=== PATIENT | female | born 1990 | race Caucasian/White ===

== ENCOUNTER 2017-12-27 11:13 | Emergency (ER) | payer OTHER ==
[2017-12-27] MEDS ORDERED: TORAdol 30 mg Injection IV ONE (11:23)
--- NOTE | 2017-12-27 11:29 | ERPHSYRPT ---
- History of Present Illness Time Seen by Provider: 12/27/17 11:18 Source: patient Physician History: CC: left inguinal pain Hx: 27 y/[address] patient of Dr Mor[facility] at [facility] on [facility]. She has a few day hx of left inguinal pain and swelling. Pain is more severe. Nausea without vomiting. No fever. No vaginal bleeding or discharge. Normal urination. Allergies/Adverse Reactions: No Known Drug Allergies Allergy (Verified 12/27/17 11:32) Home Medications: Buprenorphine HCl/Naloxone HCl [Buprenorphin-Naloxon 8-2 mg Sl] 1 tab PO UD [History] Hx Tetanus, Diphtheria Vaccination/Date Given: No (UNSURE) Hx Influenza Vaccination/Date Given: No Hx Pneumococcal Vaccination/Date Given: No - Review of Systems Constitutional: No Fever, No Chills, No Malaise Abdominal/Gastrointestinal: No Abdominal Pain Genitourinary Symptoms: No Dysuria, No , No Vaginal Bleeding, No Vaginal Discharge Skin: No Rash Neurological: No Focal Weakness, No Headache, No Parasthesia Hematologic/Lymphatic: Adenopathy (left groin?) All Other Systems: Reviewed and Negative - Past Medical History Pertinent Past Medical History: Yes Neurological History: No Pertinent History ENT History: No Pertinent History Cardiac History: No Pertinent History Respiratory History: No Pertinent History Endocrine Medical History: Hypothyroidism Musculoskeletal History: No Pertinent History GI Medical History: GERD, GI Bleed, Hepatitis, Pancreatitis History: No Pertinent History Psycho-Social History: Anxiety, Depression, Other Female Reproductive Disorders: Abnormal Uterine Bleeding, Endometriosis Other Medical History: HEP C ,PTSD, SCHIZO - Past Surgical History Past Surgical History: Yes Neuro Surgical History: No Pertinent History Cardiac: No Pertinent History Respiratory: No Pertinent History Gastrointestinal: Cholecystectomy Genitourinary: No Pertinent History Musculoskeletal: No Pertinent History, Orthopedic Surgery Female Surgical History: Other Other Surgical History: D&C, Liver bx, broken hip, bone graft with radiation - Social History Smoking Status: Current every day smoker How long have you smoked: 10yr Exposure to second hand smoke: Yes Drug Use: none Patient Lives Alone: No - Female History Hx Now: (HCG pending) - Nursing Vital Signs Nursing Vital Signs: Initial Vital Signs Temperature 98.3 F 12/27/17 11:26 Pulse Rate 104 H 12/27/17 11:26 Respiratory Rate 18 12/27/17 11:26 Blood Pressure 115/66 12/27/17 11:26 O2 Sat by Pulse Oximetry 98 12/27/17 11:26 Pain Scale Pain Intensity 6 - Physical Exam General Appearance: alert Eye Exam: PERRL/EOMI Ears, Nose, Throat Exam: moist mucous membranes Neck Exam: normal inspection, non-tender, supple Respiratory Exam: normal breath sounds Cardiovascular Exam: regular rate/rhythm Gastrointestinal/Abdomen Exam: soft, No tenderness, No distention Extremity Exam: normal inspection, normal range of motion Neurologic Exam: alert, oriented x 3, cooperative, sensation nml, No motor deficits Skin Exam: warm, dry, No rash Comments: 12/27/17 11:28 left inguinal area has swelling and tenderness. No redness. Unable to tell if LAD or inguinal hernia. Will get CT to rule out hernia. - CT Exams pelvis CT Interpretation: Tele-radiologist Report (moderate left inguinal adenopathy with largest measuring 3.5cm. Moderate inflammation in subcut fat.) Ordered Tests: Active Orders 24 hr Category Date Time Status IV Insertion STAT Care 12/27/17 11:42 Active PELVIS WITH CONTRAST [CT] Stat Exams 12/27/17 11:25 Taken CBC W DIFF Stat Lab 12/27/17 11:35 Completed CMP Stat Lab 12/27/17 11:35 Completed HCG QUALITATIVE,SERUM Stat Lab 12/27/17 11:35 Completed Manual Differential NC Stat Lab 12/27/17 11:35 Completed Medication Summary Discontinued Medications Generic Name Dose Route Start Last Admin Trade Name Freq PRN Reason Stop Dose Admin Ketorolac Tromethamine 15 mg 12/27/17 11:23 12/27/17 11:46 Toradol 30 Mg Injection IV 12/27/17 11:24 15 mg STAT ONE Administration Ketorolac Tromethamine Confirm 12/27/17 11:45 Toradol 30 Mg Injection Administered 12/27/17 11:46 Dose 30 mg .ROUTE .[facility] ONE Lab/Rad Data: Laboratory Result Diagrams 12/27/17 11:35 12/27/17 11:35 Laboratory Results 12/27/17 12/27/17 12/27/17 Range/Units 11:35 11:35 11:35 WBC 12.7 H (4.0-10.5) K/mm3 RBC 4.39 (4.1-5.4) M/mm3 Hgb 13.2 (12.0-16.0) gm/dl Hct 39.6 (35-47) % MCV 90.2 (78-100) fl MCH 30.1 (26-32) pg MCHC 33.3 (32-36) g/dl RDW 12.9 (11.5-14.0) % Plt Count 291 (150-450) K/mm3 MPV 10.1 H (6-9.5) fl Sodium 141 (137-145) mmol/L Potassium 3.9 (3.5-5.1) mmol/L Chloride 106 (98-107) mmol/L Carbon Dioxide 23 (22-30) mmol/L Anion Gap 15.9 H (5-15) MEQ/L BUN 9 (7-17) mg/dL Creatinine 0.60 (0.52-1.04) mg/dL Estimated GFR > 60 ML/MIN Glucose 96 (74-106) mg/dL Calcium 9.4 (8.4-10.2) mg/dL Total Bilirubin 0.40 (0.2-1.3) mg/dL AST 145 H (14-36) U/L ALT 272 H (0-35) U/L Alkaline Phosphatase 87 (38-126) U/L Serum Total Protein 8.2 (6.3-8.2) g/dL Albumin 4.3 (3.5-5.0) g/dL Serum , Qual NEGATIVE (Negative) - Progress Progress Note: 12/27/17 13:14 Will Rx rocephin and doxy and advise follow up. Counseled pt/family regarding: lab results, diagnosis, need for follow-up, rad results - Departure Time of Disposition: 13:14 Departure Disposition: Home Clinical Impression: left inguinal lymphadenitis Condition: Stable Critical Care Time: No Referrals: DOCTOR,NO FAMILY [NON-STAFF PHY W/O PRIVILEGES] - Instructions: Cellulitis (Skin Infection), Adult (DC) Additional Instructions: Warm compresses off and on. Rx doxycycline. Follow up with family doctor next week. Prescriptions: Doxycycline Hyclate 100 mg [Vibramycin 100 MG] 100 mg PO BID #20 tab
[2017-12-27] MEDS ORDERED: TORAdol 30 mg Injection ONE (11:45)
[2017-12-27 12:09] LABS: Hematocrit 39.6 % (35-47); Hemoglobin 13.2 gm/dl (12.0-16.0); Mean Cell Volume 90.2 fl (78-100); Mean Corpuscular Hemoglobin 30.1 pg (26-32); Mean Corpuscular Hgb Concent. 33.3 g/dl (32-36); Mean Platelet Volume 10.1 fl (6-9.5); Platelet Count 291 K/mm3 (150-450); Red Blood Count 4.39 M/mm3 (4.1-5.4); Red Cell Distribution Width 12.9 % (11.5-14.0); White Blood Count 12.7 K/mm3 (4.0-10.5)
[2017-12-27 12:20] LABS: ALBUMIN 4.3 g/dL (3.5-5.0); ALKALINE PHOSPHATASE 87 U/L (38-126); ANION GAP 15.9 MEQ/L (5-15); BLOOD UREA NITROGEN 9 mg/dL (7-17); CHLORIDE 106 mmol/L (98-107); Calcium 9.4 mg/dL (8.4-10.2); Carbon Dioxide 23 mmol/L (22-30); Glucose 96 mg/dL (74-106); Potassium 3.9 mmol/L (3.5-5.1); SGOT/AST 145 U/L (14-36); SGPT/ALT 272 U/L (0-35); SODIUM 141 mmol/L (137-145); Total Protein 8.2 g/dL (6.3-8.2)
[2017-12-27] MEDS ORDERED: ROCEPHIN 1 Gm-D5w 50 ml Bag** 1 G/50 ML IVPB IV STA (13:17)
[2017-12-27] MEDS ORDERED: ROCEPHIN 1 Gm-D5w 50 ml Bag** 1 G/50 ML IVPB IV ONE (13:19)
[2017-12-27 13:30] VITALS: BP 109/56; PULSE 76; O2SAT 97
[2017-12-27 14:13] LABS: Eosinophil 6 % (0.00-3.0); Lymphocytes 34 % (24-44); Monocyte 10 % (0.0-12.0); Neutrophils 50 % (36.0-66.0); Platelet Estimate NORMAL (NORMAL); Total Cells Counted 100
--- NOTE | 2017-12-27 20:51 | XRAY ---
Indication: Left lower quadrant pain. Multiple contiguous axial images pain through the pelvis only using 80 cc Isovue 370 contrast only. Cutaneous marker was placed over the region of pain. Comparison: August 01, 2012. The marker overlies the left groin region where there our now several prominent lymph nodes, largest measuring 2.7 x 3.4 cm with stranding suggesting infection. Additional 1.5 x 3.0 cm adenopathy in the left pelvis. Incidental scattered colonic fecal debris. No pelvic free fluid/air. Remaining visualized uterus, bladder, and vessels appear unremarkable. New finding for old right hip fracture with intact orthopedic hardware. Impression: 1. Left inguinal adenopathy and left pelvic adenopathy with stranding probably infectious and less likely malignancy. Correlate clinically. 2. Incidental fecal stasis. Comment: Preliminary interpretation was made by [facility]. No discrepancy. CTDI 23.68
== END 2017-12-27 13:37 | disposition home or self-care (01) ==
LOC: ED 11:13
DX: I88.9 Nonspecific lymphadenitis, unspecified (principal); R11.0 Nausea
CPT/HCPCS: 36000; 36415; 72193; 80053; 84703; 85025; 96365; 96374; 99284; J0696; J1885

== ENCOUNTER 2019-04-09 01:34 | Emergency (ER) | payer OTHER ==
--- NOTE | 2019-04-09 01:53 | ERPHSYRPT ---
- History of Present Illness Time Seen by Provider: 04/09/19 01:52 Source: patient Exam Limitations: clinical condition Patient Subjective Stated Complaint: pt is alert and oriented to person and time. pt is not oriented to place but knows she is in the hospital. pt comes in after standing outside of [facility] and calling 911 on herself. pt states that she has "been born 50 times and has 50 mothers". pt denies drug use for the "past 500 years or so". pt also denies alcohol. pt states that she is not having pain anywhere. pt denies auditory and visual hallucinations but pt is speaking to someone who is not there and answers questions that I am not asking. pt has flat affect and is not making eye contact. pt denies any suicidal or homicidal ideation. pt asks "have you looked inside of me?; you should probably look inside of me before you do what you're trying to do.". Triage Nursing Assessment: see above Physician History: 28 y/o white female brought in by ambulance. concern she is a danger to self because of sig confusion as well as auditory and visual hallucinations. pt has a hx of schizophrenia, anxiety and psychosis. difficult to obtain accurate hx from pt. pt not homicidal. however, states it is possible for her to be suicidal. pt claims she is a grandmother and her daughter is 12 y/o. she states she lives in a motel and next door there is a rotting corpse present according to pts daughter who told her that. Timing/Duration: today Severity of Symptoms-Max: moderate Severity of Symptoms-Current: moderate Context related to: daughter, living circumstances Associated Symptoms: confused, hallucinating Previous symptoms: no prior history Allergies/Adverse Reactions: No Known Drug Allergies Allergy (Verified 12/27/17 11:32) Home Medications: Buprenorphine HCl/Naloxone HCl [Buprenorphin-Naloxon 8-2 mg Sl] 1 tab PO UD [History] Hx Tetanus, Diphtheria Vaccination/Date Given: No (UNSURE) Hx Influenza Vaccination/Date Given: No Hx Pneumococcal Vaccination/Date Given: No Immunizations Up to Date: Yes - Past Medical History Pertinent Past Medical History: Yes Neurological History: No Pertinent History ENT History: No Pertinent History Cardiac History: No Pertinent History Respiratory History: No Pertinent History Endocrine Medical History: Hypothyroidism Musculoskeletal History: No Pertinent History GI Medical History: GERD, GI Bleed, Hepatitis, Pancreatitis History: No Pertinent History Psycho-Social History: Anxiety, Depression, Other Female Reproductive Disorders: Abnormal Uterine Bleeding, Endometriosis Other Medical History: HEP C ,PTSD, SCHIZO, psychosis - Past Surgical History Past Surgical History: Yes Neuro Surgical History: No Pertinent History Cardiac: No Pertinent History Respiratory: No Pertinent History Gastrointestinal: Cholecystectomy Genitourinary: No Pertinent History Musculoskeletal: No Pertinent History, Orthopedic Surgery Female Surgical History: Other Other Surgical History: D&C, Liver bx, broken hip, bone graft with radiation - Social History Smoking Status: Current every day smoker How long have you smoked: 10yr Exposure to second hand smoke: Yes Drug Use: none Patient Lives Alone: No - Female History Hx Now: No - Review of Systems Constitutional: Lethargy (rousable) Eyes: No Symptoms Ears, Nose, & Throat: No Symptoms Respiratory: No Symptoms Cardiac: No Symptoms Abdominal/Gastrointestinal: No Symptoms Genitourinary Symptoms: No Symptoms Musculoskeletal: No Symptoms Skin: No Symptoms Neurological: No Symptoms Psychological: Anxiety, Suicidal Ideations, Hallucinations, Other (confused to the point of unable to make rational decisions) Endocrine: No Symptoms Hematologic/Lymphatic: No Symptoms Immunological/Allergic: No Symptoms All Other Systems: Reviewed and Negative - Nursing Vital Signs Nursing Vital Signs: Initial Vital Signs Pulse Rate 90 04/09/19 01:38 Respiratory Rate 18 04/09/19 01:38 Blood Pressure 120/82 04/09/19 01:38 O2 Sat by Pulse Oximetry 97 04/09/19 01:38 Pain Scale Pain Intensity 0 - Physical Exam General Appearance: no apparent distress, lethargy (rousable), obese Eyes, Ears, Nose, Throat Exam: normal ENT inspection, moist mucous membranes Neck Exam: normal inspection, non-tender, supple, full range of motion Respiratory Exam: normal breath sounds, lungs clear, airway intact, No chest tenderness, No respiratory distress Cardiovascular Exam: regular rate/rhythm, normal heart sounds, normal peripheral pulses Gastrointestinal/Abdominal Exam: soft, normal bowel sounds, No tenderness Extremities Exam: normal inspection, normal range of motion, No evidence of injury Neurological Exam: billet checker II-XII nml as tested, disoriented x 3 Appearance: impaired insight, impaired recent memory, impaired remote memory Behavior/Eye Contact/Speech: cooperative, good eye contact, intoxicated appearance Thoughts/Hallucinations: auditory hallucinations, delusions, visual hallucinations Skin Exam: normal color, warm SpO2 Interpretation: normal SpO2: 97 O2 Delivery: Room Air - Course Nursing assessment & vital signs reviewed: Yes Ordered Tests: Active Orders 24 hr Category Date Time Status EKG-ER Only STAT Care 04/09/19 01:53 Active Psychiatric Consult STAT Cons 04/09/19 01:54 Active ACETAMINOPHEN Stat Lab 04/09/19 03:05 Completed CBC W DIFF Stat Lab 04/09/19 03:05 Completed CMP Stat Lab 04/09/19 03:05 Completed CULTURE,URINE Stat Lab 04/09/19 01:54 Received ETHYL ALCOHOL Stat Lab 04/09/19 03:05 Completed HCG,QUALITATIVE URINE Stat Lab 04/09/19 01:54 Completed SALICYLATE Stat Lab 04/09/19 03:05 Completed UA W/RFX UR CULTURE Stat Lab 04/09/19 01:54 Completed Urine Triage Profile Stat Lab 04/09/19 01:55 Completed Medication Summary Generic Name Dose Route Start Last Admin Trade Name Freq PRN Reason Stop Dose Admin Ciprofloxacin 500 mg 04/09/19 05:01 Cipro 500 Mg PO 04/09/19 05:02 STAT ONE Lab/Rad Data: Laboratory Result Diagrams 04/09/19 03:05 04/09/19 03:05 Laboratory Results 04/09/19 04/09/19 04/09/19 Range/Units 03:05 03:05 01:55 WBC 16.8 H (4.0-10.5) K/mm3 RBC 4.35 (4.1-5.4) M/mm3 Hgb 13.2 (12.0-16.0) gm/dl Hct 39.9 (35-47) % MCV 91.7 (78-100) fl MCH 30.3 (26-32) pg MCHC 33.1 (32-36) g/dl RDW 12.7 (11.5-14.0) % Plt Count 315 (150-450) K/mm3 MPV 10.0 H (6-9.5) fl Gran % 55.4 (36.0-66.0) % Eos # (Auto) 0.11 (0-0.5) Absolute Lymphs (auto) 5.85 H (1.0-4.6) Absolute Monos (auto) 1.49 H (0.0-1.3) Lymphocytes % 34.8 (24.0-44.0) % Monocytes % 8.9 (0.0-12.0) % Eosinophils % 0.7 (0.00-5.0) % Basophils % 0.2 (0.0-0.4) % Absolute Granulocytes 9.32 H (1.4-6.9) Basophils # 0.04 (0-0.4) Sodium 141 (137-145) mmol/L Potassium 3.4 L (3.5-5.1) mmol/L Chloride 107 (98-107) mmol/L Carbon Dioxide 23 (22-30) mmol/L Anion Gap 14.4 (5-15) MEQ/L BUN 17 (7-17) mg/dL Creatinine 0.71 (0.52-1.04) mg/dL Estimated GFR > 60.0 ML/MIN Glucose 88 (74-106) mg/dL Calcium 10.0 (8.4-10.2) mg/dL Total Bilirubin 0.60 (0.2-1.3) mg/dL AST 36 (14-36) U/L ALT 49 H (0-35) U/L Alkaline Phosphatase 90 (38-126) U/L Serum Total Protein 8.6 H (6.3-8.2) g/dL Albumin 4.7 (3.5-5.0) g/dL Urine Color (YELLOW) Urine Appearance (CLEAR) Urine pH (5-6) Ur Specific [place] (1.005-1.025) Urine Protein (Negative) Urine Ketones (NEGATIVE) Urine Blood (0-5) Samson/ul Urine Nitrite (NEGATIVE) Urine Bilirubin (NEGATIVE) Urine Urobilinogen (0-1) mg/dL Ur Leukocyte Esterase (NEGATIVE) Urine WBC (Auto) (0-5) /HPF Urine RBC (Auto) (0-2) /HPF U Epithel Cells (Auto) (FEW) /HPF Urine Bacteria (Auto) (NEGATIVE) /HPF Urine Mucus (Auto) (NEGATIVE) /HPF Urine Culture Reflexed (NO) Urine Glucose (NEGATIVE) mg/dL Urine HCG, Qual (Negative) Salicylates < 1.0 L (2-20) mg/dL Urine Opiates Level NEGATIVE (NEGATIVE) Ur Methadone NEGATIVE (NEGATIVE) Acetaminophen < 10 L (10-30) ug/ml Urine Barbiturates NEGATIVE (NEGATIVE) Ur Phencyclidine (PCP) NEGATIVE (NEGATIVE) Urine Amphetamine NEGATIVE (NEGATIVE) U Benzodiazepine Level POSITIVE (NEGATIVE) Urine Cocaine NEGATIVE (NEGATIVE) Urine Marijuana (THC) NEGATIVE (NEGATIVE) Ethyl Alcohol < 10 (0-10) mg/dL Slides for Path Review YES 04/09/19 04/09/19 Range/Units 01:54 01:54 WBC (4.0-10.5) K/mm3 RBC (4.1-5.4) M/mm3 Hgb (12.0-16.0) gm/dl Hct (35-47) % MCV (78-100) fl MCH (26-32) pg MCHC (32-36) g/dl RDW (11.5-14.0) % Plt Count (150-450) K/mm3 MPV (6-9.5) fl Gran % (36.0-66.0) % Eos # (Auto) (0-0.5) Absolute Lymphs (auto) (1.0-4.6) Absolute Monos (auto) (0.0-1.3) Lymphocytes % (24.0-44.0) % Monocytes % (0.0-12.0) % Eosinophils % (0.00-5.0) % Basophils % (0.0-0.4) % Absolute Granulocytes (1.4-6.9) Basophils # (0-0.4) Sodium (137-145) mmol/L Potassium (3.5-5.1) mmol/L Chloride (98-107) mmol/L Carbon Dioxide (22-30) mmol/L Anion Gap (5-15) MEQ/L BUN (7-17) mg/dL Creatinine (0.52-1.04) mg/dL Estimated GFR ML/MIN Glucose (74-106) mg/dL Calcium (8.4-10.2) mg/dL Total Bilirubin (0.2-1.3) mg/dL AST (14-36) U/L ALT (0-35) U/L Alkaline Phosphatase (38-126) U/L Serum Total Protein (6.3-8.2) g/dL Albumin (3.5-5.0) g/dL Urine Color YELLOW (YELLOW) Urine Appearance TURBID (CLEAR) Urine pH 5.0 (5-6) Ur Specific [place] 1.029 (1.005-1.025) Urine Protein 30 (Negative) Urine Ketones NEGATIVE (NEGATIVE) Urine Blood NEGATIVE (0-5) Samson/ul Urine Nitrite NEGATIVE (NEGATIVE) Urine Bilirubin NEGATIVE (NEGATIVE) Urine Urobilinogen 2 (0-1) mg/dL Ur Leukocyte Esterase SMALL (NEGATIVE) Urine WBC (Auto) 26-50 (0-5) /HPF Urine RBC (Auto) 0-2 (0-2) /HPF U Epithel Cells (Auto) RARE (FEW) /HPF Urine Bacteria (Auto) MANY (NEGATIVE) /HPF Urine Mucus (Auto) MODERATE (NEGATIVE) /HPF Urine Culture Reflexed YES (NO) Urine Glucose NEGATIVE (NEGATIVE) mg/dL Urine HCG, Qual NEGATIVE (Negative) Salicylates (2-20) mg/dL Urine Opiates Level (NEGATIVE) Ur Methadone (NEGATIVE) Acetaminophen (10-30) ug/ml Urine Barbiturates (NEGATIVE) Ur Phencyclidine (PCP) (NEGATIVE) Urine Amphetamine (NEGATIVE) U Benzodiazepine Level (NEGATIVE) Urine Cocaine (NEGATIVE) Urine Marijuana (THC) (NEGATIVE) Ethyl Alcohol (0-10) mg/dL Slides for Path Review - Progress Progress Note: 04/09/19 05:09 pt unable to make rational decisions. will fill out emergency residential forms. [facility] has accepted pt for inpt tx 04/09/19 05:13 Counseled pt/family regarding: lab results, diagnosis - Departure Departure Disposition: Transfer Clinical Impression: Confusion, Visual hallucinations, Auditory hallucinations Condition: Stable Critical Care Time: No Referrals: JUAN JOSÉ CHONG [Primary Care Provider] -
[2019-04-09 03:06] LABS: BASOPHIL % 0.2 % (0.0-0.4); Basophil (Absolute #) 0.04 (0-0.4); Eosinophil % 0.7 % (0.00-5.0); Eosinophil (Absolute #) 0.11 (0-0.5); Granulocyte Absolute (ANC) 9.32 (1.4-6.9); Granulocytes % 55.4 % (36.0-66.0); Hematocrit 39.9 % (35-47); Hemoglobin 13.2 gm/dl (12.0-16.0); Lymphocyte (Absolute #) 5.85 (1.0-4.6); Lymphocytes % 34.8 % (24.0-44.0); Mean Cell Volume 91.7 fl (78-100); Mean Corpuscular Hemoglobin 30.3 pg (26-32); Mean Corpuscular Hgb Concent. 33.1 g/dl (32-36); Monocyte (Absolute #) 1.49 (0.0-1.3); Monocytes % 8.9 % (0.0-12.0); Platelet Count 315 K/mm3 (150-450); Red Blood Count 4.35 M/mm3 (4.1-5.4); Red Cell Distribution Width 12.7 % (11.5-14.0); White Blood Count 16.8 K/mm3 (4.0-10.5)
[2019-04-09 03:21] LABS: ALBUMIN 4.7 g/dL (3.5-5.0); ALKALINE PHOSPHATASE 90 U/L (38-126); ANION GAP 14.4 MEQ/L (5-15); BLOOD UREA NITROGEN 17 mg/dL (7-17); CHLORIDE 107 mmol/L (98-107); Carbon Dioxide 23 mmol/L (22-30); Creatinine 1 0.71 mg/dL (0.52-1.04); Glucose 88 mg/dL (74-106); Potassium 3.4 mmol/L (3.5-5.1); SGOT/AST 36 U/L (14-36); SGPT/ALT 49 U/L (0-35); SODIUM 141 mmol/L (137-145); Total Protein 8.6 g/dL (6.3-8.2)
[2019-04-09 03:25] LABS: ACETAMINOPHEN < 10 ug/ml (10-30); ETHYL ALCOHOL < 10 mg/dL (0-10); SALICYLATE < 1.0 mg/dL (2-20)
[2019-04-09 03:47] LABS: Appearance TURBID (CLEAR); Bacteria MANY /HPF (NEGATIVE); Bilirubin NEGATIVE (NEGATIVE); Blood NEGATIVE Ery/ul (0-5); Epithelial Cells RARE /HPF (FEW); Glucose NEGATIVE (NEGATIVE); Ketones NEGATIVE (NEGATIVE); Leukocyte Esterase SMALL (NEGATIVE); Mucus MODERATE /HPF (NEGATIVE); Nitrite NEGATIVE (NEGATIVE); Protein,Urine Dip 30 (Negative); RBC 0-2 /HPF (0-2); Specific Gravity 1.029 (1.005-1.025); Urobilinogen 2 mg/dL (0-1); WBC 26-50 /HPF (0-5)
[2019-04-09 04:00] LABS: Amphetamine,Urine NEGATIVE (NEGATIVE); Barbiturate,Urine NEGATIVE (NEGATIVE); Benzodiazepine,Urine POSITIVE (NEGATIVE); Cocaine,Urine NEGATIVE (NEGATIVE); Methadone,Urine NEGATIVE (NEGATIVE); Opiate,Urine NEGATIVE (NEGATIVE); PCP,Urine NEGATIVE (NEGATIVE); THC,Urine NEGATIVE (NEGATIVE)
[2019-04-09] MEDS ORDERED: Cipro 500 MG PO ONE (05:01)
[2019-04-09] MEDS ORDERED: Cipro 500 MG ONE (05:12)
[2019-04-09 06:58] VITALS: BP 112/73; PULSE 83; O2SAT 94
== END 2019-04-09 08:01 | disposition short-term general hospital (02) ==
LOC: ED 01:34
DX: R41.0 Disorientation, unspecified (principal); R44.1 Visual hallucinations; R44.0 Auditory hallucinations
CPT/HCPCS: 36415; 80053; 80307; 81001; 84703; 85025; 87086; 90791; 93005; 99284; G0480; G0481; Q3014; A9270-GY

== ENCOUNTER 2019-04-23 10:14 | Emergency (ER) | payer OTHER ==
--- NOTE | 2019-04-23 10:28 | ERPHSYRPT ---
- History of Present Illness Time Seen by Provider: 04/23/19 10:23 Source: patient, EMS, police Exam Limitations: clinical condition Physician History: 28 y/o white female with known mental illness brought into ED by ems and accompanied by police. pt lives in a motel. she was screaming and yelling. she has told police she is going to kill everyone and herself. she is seeing people. pt here recently and transferred to a mental health facility. Timing/Duration: today Severity of Symptoms-Max: moderate Severity of Symptoms-Current: moderate Context related to: other (mental health issues) Suicidal thoughts: other (verbalizing) Associated Symptoms: angry, agitated, hallucinating, paranoid Previous symptoms: same symptoms as today Allergies/Adverse Reactions: No Known Drug Allergies Allergy (Verified 12/27/17 11:32) Home Medications: Buprenorphine HCl/Naloxone HCl [Buprenorphin-Naloxon 8-2 mg Sl] 1 tab PO UD [History] Hx Tetanus, Diphtheria Vaccination/Date Given: No (UNSURE) Hx Influenza Vaccination/Date Given: No Hx Pneumococcal Vaccination/Date Given: No - Past Medical History Pertinent Past Medical History: Yes Neurological History: No Pertinent History ENT History: No Pertinent History Cardiac History: No Pertinent History Respiratory History: No Pertinent History Endocrine Medical History: Hypothyroidism Musculoskeletal History: No Pertinent History GI Medical History: GERD, GI Bleed, Hepatitis, Pancreatitis History: No Pertinent History Psycho-Social History: Anxiety, Depression, Other Female Reproductive Disorders: Abnormal Uterine Bleeding, Endometriosis Other Medical History: HEP C ,PTSD, SCHIZO, psychosis - Past Surgical History Past Surgical History: Yes Neuro Surgical History: No Pertinent History Cardiac: No Pertinent History Respiratory: No Pertinent History Gastrointestinal: Cholecystectomy Genitourinary: No Pertinent History Musculoskeletal: No Pertinent History, Orthopedic Surgery Female Surgical History: Other Other Surgical History: D&C, Liver bx, broken hip, bone graft with radiation - Social History Smoking Status: Current every day smoker How long have you smoked: 10yr Exposure to second hand smoke: Yes Drug Use: none Patient Lives Alone: No - Review of Systems Constitutional: No Symptoms Eyes: No Symptoms Ears, Nose, & Throat: No Symptoms Respiratory: No Symptoms Cardiac: No Symptoms Abdominal/Gastrointestinal: No Symptoms Genitourinary Symptoms: No Symptoms Musculoskeletal: No Symptoms Skin: No Symptoms Neurological: No Symptoms Psychological: Suicidal Ideations, Emotional Lability, Hallucinations, Mood Changes, Other (homicidal ideations) Endocrine: No Symptoms Hematologic/Lymphatic: No Symptoms Immunological/Allergic: No Symptoms All Other Systems: Reviewed and Negative - Nursing Vital Signs Nursing Vital Signs: Initial Vital Signs Pulse Rate 96 H 04/23/19 10:18 Respiratory Rate 20 04/23/19 10:18 Blood Pressure 143/88 04/23/19 10:18 O2 Sat by Pulse Oximetry 95 04/23/19 10:18 Pain Scale Pain Intensity 0 - Physical Exam General Appearance: mild distress, alert, anxiety, obese Eyes, Ears, Nose, Throat Exam: normal ENT inspection, moist mucous membranes Neck Exam: normal inspection, non-tender, supple, full range of motion Respiratory Exam: normal breath sounds, lungs clear, No chest tenderness, No respiratory distress Cardiovascular Exam: tachycardia Gastrointestinal/Abdominal Exam: soft, normal bowel sounds, No tenderness Extremities Exam: normal inspection, normal range of motion, No evidence of injury Neurological Exam: agitated, anxious Appearance: disheveled, impaired insight, impaired recent memory, impaired remote memory Behavior/Eye Contact/Speech: threatening eye contact, belligerent, compulsive, uncooperative, agitated Thoughts/Hallucinations: auditory hallucinations, delusions, paranoid, visual hallucinations Skin Exam: normal color, warm, dry SpO2 Interpretation: normal O2 Delivery: Room Air - Course Nursing assessment & vital signs reviewed: Yes EKG Interpreted by Me: RATE (94), Sinus Rhythm, NORMAL AXIS, NORMAL INTERVALS, NORMAL QRS, Other (comparison ekg dated 04/09/19 no changes, no acute ischemia) Ordered Tests: Active Orders 24 hr Category Date Time Status [place] STAT Care 04/23/19 10:32 Active EKG-ER Only STAT Care 04/23/19 10:31 Active Psychiatric Consult STAT Cons 04/23/19 10:31 Active ACETAMINOPHEN Stat Lab 04/23/19 10:45 Completed CBC W DIFF Stat Lab 04/23/19 10:45 Completed CMP Stat Lab 04/23/19 10:45 Completed CULTURE,URINE Stat Lab 04/23/19 11:20 Received ETHYL ALCOHOL Stat Lab 04/23/19 10:45 Completed SALICYLATE Stat Lab 04/23/19 10:45 Completed UA W/RFX UR CULTURE Stat Lab 04/23/19 11:20 Completed Urine Triage Profile Stat Lab 04/23/19 11:12 Completed Medication Summary Generic Name Dose Route Start Last Admin Trade Name Natalya PRN Reason Stop Dose Admin Sodium Chloride 1,000 mls @ 100 mls/hr 04/23/19 11:45 04/23/19 13:14 Sodium Chloride 0.9% 1000 Ml IV 05/23/19 11:44 Not Given .Q10H JUAN Discontinued Medications Generic Name Dose Route Start Last Admin Trade Name Natalya PRN Reason Stop Dose Admin Haloperidol Lactate 5 mg 04/23/19 10:31 04/23/19 11:27 Haldol 5 Mg IV 04/23/19 10:32 5 mg STAT ONE Administration Haloperidol Lactate 5 mg 04/23/19 13:32 Haldol 5 Mg IV 04/23/19 13:33 STAT ONE Haloperidol Lactate Confirm 04/23/19 13:35 Haldol 5 Mg Administered 04/23/19 13:36 Dose 5 mg .ROUTE .STK-MED ONE Haloperidol Lactate 5 mg 04/23/19 13:40 04/23/19 13:44 Haldol 5 Mg IM 04/23/19 13:41 5 mg STAT ONE Administration Potassium Chloride 20 meq in 100 mls @ 50 mls/hr 04/23/19 11:27 04/23/19 13: 14 Potassium Chloride 20 Meq In Water 100ml IV 04/23/19 13:26 Not Given STAT ONE Potassium Chloride Confirm 04/23/19 11:40 Potassium Chloride 20 Meq In Water 100ml Administered 04/23/19 11:41 Dose 100 mls @ ud IV .STK-MED ONE Potassium Bicarbonate 25 meq 04/23/19 13:01 04/23/19 13:13 K-Lyte 25 Meq PO 04/23/19 13:02 25 meq STAT ONE Administration Potassium Bicarbonate Confirm 04/23/19 13:12 K-Lyte 25 Meq Administered 04/23/19 13:13 Dose 25 meq .ROUTE .STK-MED ONE Lab/Rad Data: Laboratory Result Diagrams 04/23/19 10:45 04/23/19 10:45 Laboratory Results 04/23/19 04/23/19 04/23/19 Range/Units 11:20 11:12 10:45 WBC (4.0-10.5) K/mm3 RBC (4.1-5.4) M/mm3 Hgb (12.0-16.0) gm/dl Hct (35-47) % MCV (78-100) fl MCH (26-32) pg MCHC (32-36) g/dl RDW (11.5-14.0) % Plt Count (150-450) K/mm3 MPV (6-9.5) fl Gran % (36.0-66.0) % Eos # (Auto) (0-0.5) Absolute Lymphs (auto) (1.0-4.6) Absolute Monos (auto) (0.0-1.3) Lymphocytes % (24.0-44.0) % Monocytes % (0.0-12.0) % Eosinophils % (0.00-5.0) % Basophils % (0.0-0.4) % Absolute Granulocytes (1.4-6.9) Basophils # (0-0.4) Sodium 143 (137-145) mmol/L Potassium 2.7 L* (3.5-5.1) mmol/L Chloride 113 H (98-107) mmol/L Carbon Dioxide 16 L* (22-30) mmol/L Anion Gap 16.0 H (5-15) MEQ/L BUN 15 (7-17) mg/dL Creatinine 0.71 (0.52-1.04) mg/dL Estimated GFR > 60.0 ML/MIN Glucose 108 H (74-106) mg/dL Calcium 9.8 (8.4-10.2) mg/dL Total Bilirubin 0.90 (0.2-1.3) mg/dL AST 43 H (14-36) U/L ALT 54 H (0-35) U/L Alkaline Phosphatase 88 (38-126) U/L Serum Total Protein 8.1 (6.3-8.2) g/dL Albumin 4.5 (3.5-5.0) g/dL Urine Color FROY (YELLOW) Urine Appearance CLOUDY (CLEAR) Urine pH 5.0 (5-6) Ur Specific [place] 1.029 (1.005-1.025) Urine Protein 100 (Negative) Urine Ketones SMALL (NEGATIVE) Urine Blood SMALL (0-5) Samson/ul Urine Nitrite NEGATIVE (NEGATIVE) Urine Bilirubin NEGATIVE (NEGATIVE) Urine Urobilinogen 2 (0-1) mg/dL Ur Leukocyte Esterase NEGATIVE (NEGATIVE) Urine WBC (Auto) 11-15 (0-5) /HPF Urine RBC (Auto) 6-10 (0-2) /HPF U Hyaline Cast (Auto) 6-10 (0-2) /LPF U Epithel Cells (Auto) RARE (FEW) /HPF Urine Bacteria (Auto) RARE (NEGATIVE) /HPF Unidentified Crystals 0-2 (NEGATIVE) /HPF Other Casts (Auto) 25-50 (NEGATIVE) /LPF Urine Mucus (Auto) MANY (NEGATIVE) /HPF Urine Culture Reflexed ORDERED SEPARATELY (NO) Urine Glucose NEGATIVE (NEGATIVE) mg/dL Salicylates < 1.0 L (2-20) mg/dL Urine Opiates Level NEGATIVE (NEGATIVE) Ur Methadone NEGATIVE (NEGATIVE) Acetaminophen < 10 L (10-30) ug/ml Urine Barbiturates NEGATIVE (NEGATIVE) Ur Phencyclidine (PCP) NEGATIVE (NEGATIVE) Urine Amphetamine POSITIVE (NEGATIVE) U Benzodiazepine Level POSITIVE (NEGATIVE) Urine Cocaine NEGATIVE (NEGATIVE) Urine Marijuana (THC) NEGATIVE (NEGATIVE) Ethyl Alcohol < 10 (0-10) mg/dL 04/23/19 Range/Units 10:45 WBC 14.2 H (4.0-10.5) K/mm3 RBC 4.29 (4.1-5.4) M/mm3 Hgb 12.9 (12.0-16.0) gm/dl Hct 38.2 (35-47) % MCV 89.0 (78-100) fl MCH 30.1 (26-32) pg MCHC 33.8 (32-36) g/dl RDW 12.7 (11.5-14.0) % Plt Count 219 (150-450) K/mm3 MPV 10.8 H (6-9.5) fl Gran % 64.9 (36.0-66.0) % Eos # (Auto) 0.01 (0-0.5) Absolute Lymphs (auto) 3.89 (1.0-4.6) Absolute Monos (auto) 1.05 (0.0-1.3) Lymphocytes % 27.4 (24.0-44.0) % Monocytes % 7.4 (0.0-12.0) % Eosinophils % 0.1 (0.00-5.0) % Basophils % 0.2 (0.0-0.4) % Absolute Granulocytes 9.22 H (1.4-6.9) Basophils # 0.03 (0-0.4) Sodium (137-145) mmol/L Potassium (3.5-5.1) mmol/L Chloride (98-107) mmol/L Carbon Dioxide (22-30) mmol/L Anion Gap (5-15) MEQ/L BUN (7-17) mg/dL Creatinine (0.52-1.04) mg/dL Estimated GFR ML/MIN Glucose (74-106) mg/dL Calcium (8.4-10.2) mg/dL Total Bilirubin (0.2-1.3) mg/dL AST (14-36) U/L ALT (0-35) U/L Alkaline Phosphatase (38-126) U/L Serum Total Protein (6.3-8.2) g/dL Albumin (3.5-5.0) g/dL Urine Color (YELLOW) Urine Appearance (CLEAR) Urine pH (5-6) Ur Specific [place] (1.005-1.025) Urine Protein (Negative) Urine Ketones (NEGATIVE) Urine Blood (0-5) Samson/ul Urine Nitrite (NEGATIVE) Urine Bilirubin (NEGATIVE) Urine Urobilinogen (0-1) mg/dL Ur Leukocyte Esterase (NEGATIVE) Urine WBC (Auto) (0-5) /HPF Urine RBC (Auto) (0-2) /HPF U Hyaline Cast (Auto) (0-2) /LPF U Epithel Cells (Auto) (FEW) /HPF Urine Bacteria (Auto) (NEGATIVE) /HPF Unidentified Crystals (NEGATIVE) /HPF Other Casts (Auto) (NEGATIVE) /LPF Urine Mucus (Auto) (NEGATIVE) /HPF Urine Culture Reflexed (NO) Urine Glucose (NEGATIVE) mg/dL Salicylates (2-20) mg/dL Urine Opiates Level (NEGATIVE) Ur Methadone (NEGATIVE) Acetaminophen (10-30) ug/ml Urine Barbiturates (NEGATIVE) Ur Phencyclidine (PCP) (NEGATIVE) Urine Amphetamine (NEGATIVE) U Benzodiazepine Level (NEGATIVE) Urine Cocaine (NEGATIVE) Urine Marijuana (THC) (NEGATIVE) Ethyl Alcohol (0-10) mg/dL - Progress Progress: improved Progress Note: 04/23/19 12:42 pt does not consent for inpt mental health management. will obtain an emergency alf 04/23/19 13:45 dr. monreal accepts pt for transfer admission. Counseled pt/family regarding: lab results, diagnosis, rad results - Departure Departure Disposition: Transfer Clinical Impression: Suicidal ideation, Homicidal ideation, Visual hallucinations, Auditory hallucinations, Delusion, Paranoia (psychosis), Hypokalemia Condition: Stable Critical Care Time: No Referrals: JUAN JOSÉ CHONG [Primary Care Provider] -
[2019-04-23] MEDS ORDERED: Haldol 5 MG IV ONE ×2 (10:31→13:32)
[2019-04-23 10:54] LABS: BASOPHIL % 0.2 % (0.0-0.4); Basophil (Absolute #) 0.03 (0-0.4); Eosinophil % 0.1 % (0.00-5.0); Eosinophil (Absolute #) 0.01 (0-0.5); Granulocyte Absolute (ANC) 9.22 (1.4-6.9); Granulocytes % 64.9 % (36.0-66.0); Hematocrit 38.2 % (35-47); Hemoglobin 12.9 gm/dl (12.0-16.0); Lymphocyte (Absolute #) 3.89 (1.0-4.6); Lymphocytes % 27.4 % (24.0-44.0); Mean Corpuscular Hemoglobin 30.1 pg (26-32); Mean Corpuscular Hgb Concent. 33.8 g/dl (32-36); Mean Platelet Volume 10.8 fl (6-9.5); Monocyte (Absolute #) 1.05 (0.0-1.3); Monocytes % 7.4 % (0.0-12.0); Platelet Count 219 K/mm3 (150-450); Red Blood Count 4.29 M/mm3 (4.1-5.4); Red Cell Distribution Width 12.7 % (11.5-14.0); White Blood Count 14.2 K/mm3 (4.0-10.5)
[2019-04-23 11:21] LABS: ALBUMIN 4.5 g/dL (3.5-5.0); ALKALINE PHOSPHATASE 88 U/L (38-126); BLOOD UREA NITROGEN 15 mg/dL (7-17); CHLORIDE 113 mmol/L (98-107); Calcium 9.8 mg/dL (8.4-10.2); Creatinine 1 0.71 mg/dL (0.52-1.04); Glucose 108 mg/dL (74-106); SGOT/AST 43 U/L (14-36); SGPT/ALT 54 U/L (0-35); SODIUM 143 mmol/L (137-145); Total Protein 8.1 g/dL (6.3-8.2)
[2019-04-23 11:23] LABS: ACETAMINOPHEN < 10 ug/ml (10-30); Carbon Dioxide 16 mmol/L (22-30); ETHYL ALCOHOL < 10 mg/dL (0-10); Potassium 2.7 mmol/L (3.5-5.1); SALICYLATE < 1.0 mg/dL (2-20)
[2019-04-23 11:28] LABS: Appearance CLOUDY (CLEAR); Bacteria RARE /HPF (NEGATIVE); Bilirubin NEGATIVE (NEGATIVE); Blood SMALL Ery/ul (0-5); Epithelial Cells RARE /HPF (FEW); Glucose NEGATIVE (NEGATIVE); Ketones SMALL (NEGATIVE); Leukocyte Esterase NEGATIVE (NEGATIVE); Mucus MANY /HPF (NEGATIVE); Nitrite NEGATIVE (NEGATIVE); Protein,Urine Dip 100 (Negative); Specific Gravity 1.029 (1.005-1.025); Urobilinogen 2 mg/dL (0-1)
[2019-04-23 11:32] LABS: Crystals Unidentified 0-2 /HPF (NEGATIVE)
[2019-04-23] MEDS ORDERED: POTASSIUM CHLORIDE 20 mEq IN WATER 100ML 100 ML IV ONE (11:40)
[2019-04-23] MEDS ORDERED: Sodium Chloride 0.9% 1000 ML 1,000 ML ONE (11:40)
[2019-04-23] MEDS: Sodium Chloride 0.9% 1000 ML 1,000 ML IV SCH ×2 (11:41→13:14)
[2019-04-23] MEDS: POTASSIUM CHLORIDE 20 mEq IN WATER 100ML 20 MEQ/100 ML BAG IV ONE ×2 (11:42→13:14)
[2019-04-23 11:43] LABS: Barbiturate,Urine NEGATIVE (NEGATIVE); Benzodiazepine,Urine POSITIVE (NEGATIVE); Cocaine,Urine NEGATIVE (NEGATIVE); Methadone,Urine NEGATIVE (NEGATIVE); Opiate,Urine NEGATIVE (NEGATIVE); PCP,Urine NEGATIVE (NEGATIVE); THC,Urine NEGATIVE (NEGATIVE)
[2019-04-23 12:15] VITALS: O2SAT 98
[2019-04-23 12:15] LABS: Amphetamine,Urine POSITIVE (NEGATIVE)
[2019-04-23] MEDS ORDERED: K-LYTE 25 MEQ PO ONE (13:01)
[2019-04-23] MEDS ORDERED: K-LYTE 25 MEQ ONE (13:12)
[2019-04-23] MEDS ORDERED: Haldol 5 MG ONE (13:35)
[2019-04-23] MEDS ORDERED: Haldol 5 MG IM ONE (13:40)
[2019-04-23 14:47] VITALS: BP 127/84; PULSE 80
== END 2019-04-23 15:12 | disposition short-term general hospital (02) ==
LOC: ED 10:14
DX: R45.851 Suicidal ideations (principal); R45.850 Homicidal ideations; R44.0 Auditory hallucinations; F22 Delusional disorders; F23 Brief psychotic disorder; E87.6 Hypokalemia; F41.9 Anxiety disorder, unspecified; F32.9 Major depressive disorder, single episode, unspecified; B19.20 Unspecified viral hepatitis C without hepatic coma; F20.9 Schizophrenia, unspecified
CPT/HCPCS: 36415; 80053; 80307; 81001; 85025; 87086; 93005; 93041; 96372; 96374; 99285; G0480; G0481; J1630; J3480; A9270-GY

== ENCOUNTER 2019-05-02 21:59 | Emergency (ER) | payer OTHER ==
[2019-05-02 23:04] LABS: BASOPHIL % 0.3 % (0.0-0.4); Basophil (Absolute #) 0.04 (0-0.4); Eosinophil % 0.8 % (0.00-5.0); Eosinophil (Absolute #) 0.11 (0-0.5); Granulocyte Absolute (ANC) 8.95 (1.4-6.9); Granulocytes % 62.6 % (36.0-66.0); Hematocrit 36.5 % (35-47); Hemoglobin 12.3 gm/dl (12.0-16.0); Lymphocyte (Absolute #) 3.95 (1.0-4.6); Lymphocytes % 27.6 % (24.0-44.0); Mean Cell Volume 90.6 fl (78-100); Mean Corpuscular Hemoglobin 30.5 pg (26-32); Mean Corpuscular Hgb Concent. 33.7 g/dl (32-36); Monocyte (Absolute #) 1.24 (0.0-1.3); Monocytes % 8.7 % (0.0-12.0); Platelet Count 195 K/mm3 (150-450); Red Blood Count 4.03 M/mm3 (4.1-5.4); Red Cell Distribution Width 12.8 % (11.5-14.0); White Blood Count 14.3 K/mm3 (4.0-10.5)
[2019-05-02 23:13] LABS: ALBUMIN 4.1 g/dL (3.5-5.0); ALKALINE PHOSPHATASE 76 U/L (38-126); ANION GAP 12.9 MEQ/L (5-15); BLOOD UREA NITROGEN 14 mg/dL (7-17); CHLORIDE 110 mmol/L (98-107); Calcium 8.8 mg/dL (8.4-10.2); Carbon Dioxide 18 mmol/L (22-30); Creatinine 1 0.53 mg/dL (0.52-1.04); Glucose 100 mg/dL (74-106); SGOT/AST 27 U/L (14-36); SGPT/ALT 52 U/L (0-35); SODIUM 138 mmol/L (137-145); Total Protein 7.4 g/dL (6.3-8.2)
[2019-05-02 23:21] LABS: Barbiturate,Urine NEGATIVE (NEGATIVE); Benzodiazepine,Urine POSITIVE (NEGATIVE); Cocaine,Urine NEGATIVE (NEGATIVE); Methadone,Urine NEGATIVE (NEGATIVE); Opiate,Urine NEGATIVE (NEGATIVE); PCP,Urine NEGATIVE (NEGATIVE); THC,Urine NEGATIVE (NEGATIVE)
[2019-05-02 23:22] LABS: ACETAMINOPHEN < 10 ug/ml (10-30); ETHYL ALCOHOL < 10 mg/dL (0-10); Potassium 2.9 mmol/L (3.5-5.1); SALICYLATE < 1.0 mg/dL (2-20)
[2019-05-02] MEDS ORDERED: K-LYTE 25 MEQ PO ONE (23:24)
[2019-05-02] MEDS ORDERED: POTASSIUM CHLORIDE 20 mEq IN WATER 100ML 20 MEQ/100 ML BAG IV ONE (23:24)
--- NOTE | 2019-05-02 23:34 | ERPHSYRPT ---
- History of Present Illness Time Seen by Provider: 05/02/19 22:11 Source: patient, EMS Exam Limitations: clinical condition Patient Subjective Stated Complaint: pt arrives per EMS, pt refuses to answer questions from this nurse. pt denies pain, pt reports thirst. EMS reports that pt has interacted with PD 5 times today, reports that pt is homeless and has reportedly been trespassing. EMS reports that pt has been outside in the heat all day today. EMS reports pt has psych history. Triage Nursing Assessment: pt is aox2, pt is not aware of the day or time, pt with rambling, non sensical speech, pt arrives in wet clothing, pt cooperative at time of arrival, pt afebrile, pupils perrl, resps easy and non labored, radial pulses strong and equal, cap refill < 3 seconds, abd soft, bowel sounds present and normoactive x 4, pt appears sunburned. skin warm to touch. Physician History: Pt was found altered mentally according to EMS personnel, she was given Narcan, but did not change her condition. She states, she took some Meth today, interacted with PD, and they called EMS. She states, she has extensive psychiatric history, multiple admissions, for psychosis. She denies any injury or current complaints, she denies taking any other drugs or medicines than Meth. Timing/Duration: today Severity of Symptoms-Max: severe Severity of Symptoms-Current: severe Context related to: other (unknown) Associated Symptoms: denies symptoms Previous symptoms: same symptoms as today Allergies/Adverse Reactions: No Known Drug Allergies Allergy (Verified 12/27/17 11:32) Home Medications: Buprenorphine HCl/Naloxone HCl [Buprenorphin-Naloxon 8-2 mg Sl] 1 tab PO UD [History] Hx Tetanus, Diphtheria Vaccination/Date Given: (unk) Hx Influenza Vaccination/Date Given: (unk) Hx Pneumococcal Vaccination/Date Given: (unk) Immunizations Up to Date: (unk) - Past Medical History Pertinent Past Medical History: Yes Neurological History: No Pertinent History ENT History: No Pertinent History Cardiac History: No Pertinent History Respiratory History: No Pertinent History Endocrine Medical History: Hypothyroidism Musculoskeletal History: No Pertinent History GI Medical History: GERD, GI Bleed, Hepatitis, Pancreatitis History: No Pertinent History Psycho-Social History: Anxiety, Depression, Other Female Reproductive Disorders: Abnormal Uterine Bleeding, Endometriosis Other Medical History: HEP C ,PTSD, SCHIZO, psychosis - Past Surgical History Past Surgical History: Yes Neuro Surgical History: No Pertinent History Cardiac: No Pertinent History Respiratory: No Pertinent History Gastrointestinal: Cholecystectomy Genitourinary: No Pertinent History Musculoskeletal: No Pertinent History, Orthopedic Surgery Female Surgical History: Other Other Surgical History: D&C, Liver bx, broken hip, bone graft with radiation - Social History Smoking Status: Unknown if ever smoked How long have you smoked: 10yr Exposure to second hand smoke: Yes Drug Use: methamphetamines Patient Lives Alone: No (unk) - Female History Hx Now: (unk) - Review of Systems Constitutional: No Symptoms Respiratory: No Symptoms Cardiac: No Symptoms Abdominal/Gastrointestinal: No Symptoms Skin: No Symptoms Neurological: No Symptoms Psychological: Hallucinations All Other Systems: Reviewed and Negative (limited somewhat duew to her psychiatric condition, but calm, and cooperating) - Nursing Vital Signs Nursing Vital Signs: Initial Vital Signs Temperature 98 F 05/02/19 22:01 Pulse Rate 95 H 05/02/19 22:01 Respiratory Rate 18 05/02/19 22:01 Blood Pressure 121/86 05/02/19 22:01 O2 Sat by Pulse Oximetry 100 05/02/19 22:01 Pain Scale Pain Intensity 0 - Physical Exam General Appearance: no apparent distress Eyes, Ears, Nose, Throat Exam: normal ENT inspection, pharynx normal, moist mucous membranes Neck Exam: normal inspection, non-tender, supple, No carotid bruit, No JVD Respiratory Exam: normal breath sounds, lungs clear, airway intact, No chest tenderness Cardiovascular Exam: regular rate/rhythm, normal heart sounds, normal peripheral pulses, No murmur Gastrointestinal/Abdominal Exam: soft, normal bowel sounds, No tenderness, No distention, No mass, No guarding, No ecchymosis, No pulsatile mass, No rebound, No organomegaly Peripheral Pulses: carotid (R): 3+, carotid (L): 3+, dorsalis-pedis (R): 3+, dorsalis-pedis (L): 3+ Neurological Exam: alert, normal mood/affect, calm, anxious (slightly) Appearance: appropriate appearance Behavior/Eye Contact/Speech: alert & cooperative Thoughts/Hallucinations: no apparent hallucination Skin Exam: normal color, warm, dry, No rash, No petechiae, No cyanosis, No diaphoresis SpO2 Interpretation: normal SpO2: 100 O2 Delivery: Room Air - Course Nursing assessment & vital signs reviewed: Yes EKG Interpreted by Me: RATE (81/min), NORMAL AXIS, NORMAL INTERVALS, NORMAL QRS , Non-specific ST Changes Ordered Tests: Active Orders 24 hr Category Date Time Status Potassium (Lab Test) [Potassium] Stat Lab 05/03/19 02:01 Completed Medication Summary Discontinued Medications Generic Name Dose Route Start Last Admin Trade Name Natalya PRN Reason Stop Dose Admin Potassium Chloride 20 meq in 100 mls @ 50 mls/hr 05/02/19 23:24 05/02/19 23: 44 Potassium Chloride 20 Meq In Water 100ml IV 05/03/19 01:23 50 mls/hr STAT ONE Administration Sodium Chloride Confirm 05/02/19 23:36 Sodium Chloride 0.9% 1000 Ml Administered 05/02/19 23:37 Dose 1,000 mls @ ud .ROUTE .STK-MED ONE Potassium Chloride Confirm 05/02/19 23:36 Potassium Chloride 20 Meq In Water 100ml Administered 05/02/19 23:37 Dose 100 mls @ ud IV .STK-MED ONE Sodium Chloride 1,000 mls @ 100 mls/hr 05/02/19 23:45 05/02/19 23:42 Sodium Chloride 0.9% 1000 Ml IV 06/01/19 23:44 100 mls/hr .Q10H JUAN Administration Potassium Bicarbonate 50 meq 05/02/19 23:24 05/02/19 23:48 K-Lyte 25 Meq PO 05/02/19 23:25 50 meq STAT ONE Administration Potassium Bicarbonate Confirm 05/02/19 23:36 K-Lyte 25 Meq Administered 05/02/19 23:37 Dose 25 meq .ROUTE .STK-MED ONE Ziprasidone 10 mg 05/03/19 01:10 05/03/19 01:40 Geodon 20 Mg Inj IM 05/03/19 01:11 10 mg STAT ONE Administration Ziprasidone Confirm 05/03/19 01:39 Geodon 20 Mg Inj Administered 05/03/19 01:40 Dose 20 mg IM .STK-MED ONE Lab/Rad Data: Laboratory Result Diagrams 05/02/19 23:00 05/03/19 02:01 Laboratory Results 05/03/19 05/02/1905/02/19 Range/Units 02:01 23:00 23:00 WBC (4.0-10.5) K/mm3 RBC (4.1-5.4) M/mm3 Hgb (12.0-16.0) gm/dl Hct (35-47) % MCV (78-100) fl MCH (26-32) pg MCHC (32-36) g/dl RDW (11.5-14.0) % Plt Count (150-450) K/mm3 MPV (6-9.5) fl Gran % (36.0-66.0) % Eos # (Auto) (0-0.5) Absolute Lymphs (auto) (1.0-4.6) Absolute Monos (auto) (0.0-1.3) Lymphocytes % (24.0-44.0) % Monocytes % (0.0-12.0) % Eosinophils % (0.00-5.0) % Basophils % (0.0-0.4) % Absolute Granulocytes (1.4-6.9) Basophils # (0-0.4) Sodium (137-145) mmol/L Potassium 3.3 L (3.5-5.1) mmol/L Chloride (98-107) mmol/L Carbon Dioxide (22-30) mmol/L Anion Gap (5-15) MEQ/L BUN (7-17) mg/dL Creatinine (0.52-1.04) mg/dL Estimated GFR ML/MIN Glucose (74-106) mg/dL Calcium (8.4-10.2) mg/dL Total Bilirubin (0.2-1.3) mg/dL AST (14-36) U/L ALT (0-35) U/L Alkaline Phosphatase (38-126) U/L Serum Total Protein (6.3-8.2) g/dL Albumin (3.5-5.0) g/dL Serum , Qual (Negative) Urine Color FROY (YELLOW) Urine Appearance CLOUDY (CLEAR) Urine pH 5.0 (5-6) Ur Specific [place] 1.029 (1.005-1.025) Urine Protein 30 (Negative) Urine Ketones TRACE (NEGATIVE) Urine Blood NEGATIVE (0-5) Samson/ul Urine Nitrite NEGATIVE (NEGATIVE) Urine Bilirubin NEGATIVE (NEGATIVE) Urine Urobilinogen 2 (0-1) mg/dL Ur Leukocyte Esterase NEGATIVE (NEGATIVE) Urine WBC (Auto) 3-5 (0-5) /HPF Urine RBC (Auto) 3-5 (0-2) /HPF U Epithel Cells (Auto) NONE (FEW) /HPF Urine Bacteria (Auto) NONE (NEGATIVE) /HPF Urine Mucus (Auto) MANY (NEGATIVE) /HPF Urine Culture Reflexed NO (NO) Urine Glucose NEGATIVE (NEGATIVE) mg/dL Salicylates (2-20) mg/dL Urine Opiates Level NEGATIVE (NEGATIVE) Ur Methadone NEGATIVE (NEGATIVE) Acetaminophen (10-30) ug/ml Urine Barbiturates NEGATIVE (NEGATIVE) Ur Phencyclidine (PCP) NEGATIVE (NEGATIVE) Urine Amphetamine POSITIVE (NEGATIVE) U Benzodiazepine Level POSITIVE (NEGATIVE) Urine Cocaine NEGATIVE (NEGATIVE) Urine Marijuana (THC) NEGATIVE (NEGATIVE) Ethyl Alcohol (0-10) mg/dL 05/02/19 05/02/19 05/02/19 Range/Units 23:00 23:00 23:00 WBC 14.3 H (4.0-10.5) K/mm3 RBC 4.03 L (4.1-5.4) M/mm3 Hgb 12.3 (12.0-16.0) gm/dl Hct 36.5 (35-47) % MCV 90.6 (78-100) fl MCH 30.5 (26-32) pg MCHC 33.7 (32-36) g/dl RDW 12.8 (11.5-14.0) % Plt Count 195 (150-450) K/mm3 MPV 11.0 H (6-9.5) fl Gran % 62.6 (36.0-66.0) % Eos # (Auto) 0.11 (0-0.5) Absolute Lymphs (auto) 3.95 (1.0-4.6) Absolute Monos (auto) 1.24 (0.0-1.3) Lymphocytes % 27.6 (24.0-44.0) % Monocytes % 8.7 (0.0-12.0) % Eosinophils % 0.8 (0.00-5.0) % Basophils % 0.3 (0.0-0.4) % Absolute Granulocytes 8.95 H (1.4-6.9) Basophils # 0.04 (0-0.4) Sodium 138 (137-145) mmol/L Potassium 2.9 L* (3.5-5.1) mmol/L Chloride 110 H (98-107) mmol/L Carbon Dioxide 18 L (22-30) mmol/L Anion Gap 12.9 (5-15) MEQ/L BUN 14 (7-17) mg/dL Creatinine 0.53 (0.52-1.04) mg/dL Estimated GFR > 60.0 ML/MIN Glucose 100 (74-106) mg/dL Calcium 8.8 (8.4-10.2) mg/dL Total Bilirubin 1.00 (0.2-1.3) mg/dL AST 27 (14-36) U/L ALT 52 H (0-35) U/L Alkaline Phosphatase 76 (38-126) U/L Serum Total Protein 7.4 (6.3-8.2) g/dL Albumin 4.1 (3.5-5.0) g/dL Serum , Qual NEGATIVE (Negative) Urine Color (YELLOW) Urine Appearance (CLEAR) Urine pH (5-6) Ur Specific [place] (1.005-1.025) Urine Protein (Negative) Urine Ketones (NEGATIVE) Urine Blood (0-5) Samson/ul Urine Nitrite (NEGATIVE) Urine Bilirubin (NEGATIVE) Urine Urobilinogen (0-1) mg/dL Ur Leukocyte Esterase (NEGATIVE) Urine WBC (Auto) (0-5) /HPF Urine RBC (Auto) (0-2) /HPF U Epithel Cells (Auto) (FEW) /HPF Urine Bacteria (Auto) (NEGATIVE) /HPF Urine Mucus (Auto) (NEGATIVE) /HPF Urine Culture Reflexed (NO) Urine Glucose (NEGATIVE) mg/dL Salicylates < 1.0 L (2-20) mg/dL Urine Opiates Level (NEGATIVE) Ur Methadone (NEGATIVE) Acetaminophen < 10 L (10-30) ug/ml Urine Barbiturates (NEGATIVE) Ur Phencyclidine (PCP) (NEGATIVE) Urine Amphetamine (NEGATIVE) U Benzodiazepine Level (NEGATIVE) Urine Cocaine (NEGATIVE) Urine Marijuana (THC) (NEGATIVE) Ethyl Alcohol < 10 (0-10) mg/dL - Progress Progress: unchanged Progress Note: 05/03/19 02:14 Pt has been actively hallucinating, laughing, however, when somebody enters the room, she becomes responsive, asking wht was she given ( Geodon ) and demands Cogentin. We reviewed her test results, repeat potassium is 3.3, medically she is clear for psychiatric evaluation. Counseled pt/family regarding: lab results, diagnosis - Departure Departure Disposition: Transfer (Psychiatry) Clinical Impression: Visual hallucinations, Confusion Condition: Stable Critical Care Time: No Referrals: JUAN JOSÉ CHONG [Primary Care Provider] -
[2019-05-02 23:35] LABS: Appearance CLOUDY (CLEAR); Bilirubin NEGATIVE (NEGATIVE); Blood NEGATIVE Ery/ul (0-5); Glucose NEGATIVE (NEGATIVE); Ketones TRACE (NEGATIVE); Leukocyte Esterase NEGATIVE (NEGATIVE); Mucus MANY /HPF (NEGATIVE); Nitrite NEGATIVE (NEGATIVE); Protein,Urine Dip 30 (Negative); Specific Gravity 1.029 (1.005-1.025); Urobilinogen 2 mg/dL (0-1)
[2019-05-02] MEDS ORDERED: K-LYTE 25 MEQ ONE (23:36)
[2019-05-02] MEDS ORDERED: Sodium Chloride 0.9% 1000 ML 1,000 ML ONE (23:36)
[2019-05-02] MEDS ORDERED: POTASSIUM CHLORIDE 20 mEq IN WATER 100ML 100 ML IV ONE (23:36)
[2019-05-02] MEDS ORDERED: Sodium Chloride 0.9% 1000 ML 1,000 ML IV SCH (23:45)
[2019-05-02 23:48] LABS: Amphetamine,Urine POSITIVE (NEGATIVE)
[2019-05-03] MEDS ORDERED: Geodon 20 MG INJ IM ONE ×2 (01:10→01:39)
[2019-05-03 06:46] VITALS: BP 127/81; PULSE 74
[2019-05-04 01:45] VITALS: O2SAT 100
== END 2019-05-03 06:15 | disposition short-term general hospital (02) ==
LOC: ED 21:59
DX: R44.1 Visual hallucinations (principal); R41.0 Disorientation, unspecified; Z79.899 Other long term (current) drug therapy; E03.9 Hypothyroidism, unspecified
CPT/HCPCS: 36415; 80053; 80307; 81001; 81025; 84132; 85025; 93005; 96360; 96365; 96372; 99285; G0480; G0481; J3480; J3486; A9270-GY

== ENCOUNTER 2023-08-14 13:52 | Emergency (ER) | payer OTHER ==
--- NOTE | 2023-08-14 14:09 | ERPHSYRPT ---
- History of Present Illness Time Seen by Provider: 08/14/23 14:09 Source: patient Exam Limitations: no limitations Physician History: This is a right-handed 33-year-old white female patient who was at work today and cut her right elbow on steel object. Patient tetanus status is not up-to-date. Timing/Duration: today Severity: mild Modifying Factors: Improves With: movement (Very mild pain but has full range of motion) Associated Symptoms: denies symptoms ( right upper extremity) Allergies/Adverse Reactions: No Known Drug Allergies Allergy (Verified 08/14/23 14:05) Home Medications: Ethinyl Estradiol/Drospirenone [Vestura 3 mg-0.02 mg Tablet] 1 each PO DAILY 08/14/23 [History] Hx Tetanus, Diphtheria Vaccination/Date Given: (unk) Hx Influenza Vaccination/Date Given: (unk) Hx Pneumococcal Vaccination/Date Given: (unk) Travel Risk - International Travel Have you traveled outside of the country in past 3 weeks: No - Coronavirus Screening Are you exhibiting any of the following symptoms?: No Close contact with a COVID-19 positive Pt in past 14-21 Days: No - Review of Systems Constitutional: No Symptoms Eyes: No Symptoms Ears, Nose, & Throat: No Symptoms Respiratory: No Symptoms Cardiac: No Symptoms Abdominal/Gastrointestinal: No Symptoms Genitourinary Symptoms: No Symptoms Musculoskeletal: No Symptoms Skin: Other (Laceration skin overlying left elbow) Neurological: No Symptoms Psychological: No Symptoms Endocrine: No Symptoms Hematologic/Lymphatic: No Symptoms Immunological/Allergic: No Symptoms All Other Systems: Reviewed and Negative - Past Medical History Pertinent Past Medical History: Yes Neurological History: No Pertinent History ENT History: No Pertinent History Cardiac History: No Pertinent History Respiratory History: No Pertinent History Endocrine Medical History: Hypothyroidism Musculoskeletal History: No Pertinent History GI Medical History: GERD, GI Bleed, Hepatitis, Pancreatitis History: No Pertinent History Psycho-Social History: Anxiety, Depression, Other Female Reproductive Disorders: Abnormal Uterine Bleeding, Endometriosis Other Medical History: HEP C ,PTSD, SCHIZO, psychosis - Past Surgical History Past Surgical History: Yes Neuro Surgical History: No Pertinent History Cardiac: No Pertinent History Respiratory: No Pertinent History Gastrointestinal: Cholecystectomy Genitourinary: No Pertinent History Musculoskeletal: No Pertinent History, Orthopedic Surgery Female Surgical History: Other Other Surgical History: D&C, Liver bx, broken hip, bone graft with radiation - Social History Smoking Status: Unknown if ever smoked How long have you smoked: 10yr Exposure to second hand smoke: Yes Drug Use: methamphetamines Patient Lives Alone: No (unk) - Nursing Vital Signs Nursing Vital Signs: Initial Vital Signs Temperature 96.9 F 08/14/23 14:07 Pulse Rate 68 08/14/23 14:07 Respiratory Rate 14 08/14/23 14:07 Blood Pressure 124/85 08/14/23 14:07 O2 Sat by Pulse Oximetry 100 08/14/23 14:07 Pain Scale Pain Intensity 3 - Physical Exam General Appearance: no apparent distress, alert, anxiety Eye Exam: PERRL/EOMI, eyes nml inspection Ears, Nose, Throat Exam: normal ENT inspection, moist mucous membranes Neck Exam: normal inspection, non-tender, supple, full range of motion Respiratory Exam: airway intact, No chest tenderness, No respiratory distress Gastrointestinal/Abdomen Exam: No tenderness Pelvic Exam: not done Rectal Exam: not done Back Exam: normal inspection, normal range of motion, No CVA tenderness, No vertebral tenderness Extremity Exam: normal range of motion, pelvis stable, lacerations (2.5 cm skin laceration proximal dorsal elbow. No active bleeding. No foreign body.) Neurologic Exam: alert, oriented x 3, cooperative, educational interpreter II-XII nml as tested, normal mood/affect, nml cerebellar function, nml station & gait, sensation nml Skin Exam: normal color, warm, dry, laceration (See above extremity section.) Lymphatic Exam: No adenopathy SpO2 Interpretation: normal O2 Delivery: Room Air Procedures - Laceration/Wound Repair Right Distal Volar Arm Time of Procedure: 14:45 Wound Location: Right, upper arm (Distal, dorsal aspect) Wound Length (cm): 2.5 Wound's Depth, Shape: superficial, linear, into subcut Wound Explored: clean (Wound was explored to the base in a bloodless field and no foreign body noted.) Irrigated: Yes Hibiclens Prep: Yes Volume Anesthetic (ccs): 0 (Patient was offered intradermal injection local anesthesia as well as the option of topical anesthesia. Patient refused both.) Wound Repaired With: Michele (3 michele were used to approximate the skin) - Course Nursing assessment & vital signs reviewed: Yes - Progress Progress: improved, re-examined Progress Note: 08/14/23 15:13 Patient's medical issue is 1 of low complexity. Patient's work-up does not require laboratory radiographic studies. Patient was offered the option of no anesthesia of any kind, topical anesthesia or intradermal lidocaine injectable local anesthesia. Patient opted for no anesthesia of any kind. Counseled pt/family regarding: diagnosis, need for follow-up Medical Desision Making - Diagnostic Testing Diagnostic test were ordered, analyzed, and reviewed by me: No - Risk of complications Minimal Risk: Minimal risk of morbidity - Departure Departure Disposition: Home Clinical Impression: Laceration of right elbow Condition: Stable Critical Care Time: No Referrals: JUAN JOSÉ CHOGN [Primary Care Provider] - Follow up/PCP as directed Additional Instructions: Keep current bandage on for 24 hours. After 24 hours, may wash the site with soap and water daily thereafter. Blot dry use a fine hairer then apply an tibiotic ointment of choice and cover with bandage. Staple removal in 10 days. May use Tylenol and ibuprofen for pain control. May follow-up with your primary care provider or the emergency department for staple removal.
[2023-08-14 14:22] VITALS: RESP 14; TEMP 96.9
[2023-08-14] MEDS ORDERED: Adacel Vial IM ONE ×2 (15:06→15:14)
[2023-08-14] MEDS ORDERED: BACIGUENT PACKET TP ONE (15:07)
[2023-08-14] MEDS ORDERED: BACIGUENT PACKET ONE (15:14)
[2023-08-14 15:30] VITALS: BP 127/90; PULSE 67; O2SAT 99
== END 2023-08-14 15:30 | disposition home or self-care (01) ==
LOC: ED 13:52
DX: S51.011A Laceration without foreign body of right elbow, initial encounter (principal); W22.09XA Striking against other stationary object, initial encounter; Y92.63 Factory as the place of occurrence of the external cause; Y99.0 Civilian activity done for income or pay; Z23 Encounter for immunization
CPT/HCPCS: 12001; 90471; 90715; 99282; A9270-GY

== ENCOUNTER 2024-04-21 21:52 | Emergency (ER) | payer BC, OTHER ==
[2024-04-21 22:21] VITALS: TEMP 98; O2SAT 100
--- NOTE | 2024-04-21 22:32 | ERPHSYRPT ---
- History of Present Illness Patient Subjective Stated Complaint: pt states she thinks she may have a uti. states she has been nauseated and having difficulty urinating and frequency. Triage Nursing Assessment: pt alert and oriented, answers questions approp. pt ambulates into room with steady gait noted. respirations nonlabored. skin warm and dry. abd soft and nontender, bowel sounds present. urine clear and fermin. Allergies/Adverse Reactions: No Known Drug Allergies Allergy (Verified 04/21/24 22:21) Home Medications: Ethinyl Estradiol/Drospirenone [Vestura 3 mg-0.02 mg Tablet] 1 each PO DAILY 08/14/23 [History] Contrave DAILY 04/21/24 [History] Hx Tetanus, Diphtheria Vaccination/Date Given: Yes Hx Influenza Vaccination/Date Given: No Hx Pneumococcal Vaccination/Date Given: No Immunizations Up to Date: Yes Travel Risk - International Travel Have you traveled outside of the country in past 3 weeks: No - Emerging Infectious Disease Are you exhibiting symptoms associated with any current EIDs: No - Past Medical History Pertinent Past Medical History: Yes Neurological History: No Pertinent History ENT History: No Pertinent History Cardiac History: No Pertinent History Respiratory History: No Pertinent History Endocrine Medical History: Hypothyroidism Musculoskeletal History: No Pertinent History GI Medical History: GERD, GI Bleed, Hepatitis, Pancreatitis History: No Pertinent History Psycho-Social History: Anxiety, Depression, Other Female Reproductive Disorders: Abnormal Uterine Bleeding, Endometriosis Other Medical History: HEP C- was treated,PTSD, SCHIZO, psychosis - Past Surgical History Past Surgical History: Yes Neuro Surgical History: No Pertinent History Cardiac: No Pertinent History Respiratory: No Pertinent History Gastrointestinal: Cholecystectomy Genitourinary: No Pertinent History Musculoskeletal: No Pertinent History, Orthopedic Surgery Female Surgical History: Other Other Surgical History: D&C, Liver bx, broken hip, bone graft with radiation - Female History Hx Last Menstrual Period: 3 weeks Hx Now: No - Social History Smoking Status: Smoker, status unknown How long have you smoked: 10yr Exposure to second hand smoke: No Drug Use: none Patient Lives Alone: No (unk) - Social Determinants of Health Will the patient participate in the screening: Declined to provide - Nursing Vital Signs Nursing Vital Signs: Initial Vital Signs Temperature 98.0 F 04/21/24 22:03 Pulse Rate 75 04/21/24 22:03 Respiratory Rate 16 07/10/24 22:03 Blood Pressure 135/74 07/10/24 22:03 O2 Sat by Pulse Oximetry 100 04/21/24 22:03 Pain Scale Pain Intensity 8 - Physical Exam SpO2: 100 Ordered Tests: Active Orders 24 hr Category Date Time Status HCG QUALITATIVE, URINE Stat Lab 04/21/24 Ordered - Departure Referrals: ARIANA GALLEGO, MELON PACKER [Primary Care Provider] - Follow up/PCP as directed
[2024-04-21] MEDS ORDERED: Sodium Chloride 0.9% 1000 ML 1,000 ML ONE (22:44)
[2024-04-21 22:47] LABS: HCG URINE TEST NEGATIVE (NEGATIVE)
[2024-04-21] MEDS: Sodium Chloride 0.9% 1000 ML 1,000 ML IV STA (22:48)
[2024-04-21 23:12] LABS: Absolute Neutrophil Ct (ANC) 5.79 x10^3/uL (1.56-6.13); BASOPHIL % 0.4 % (0.1-1.2); Basophil (Absolute #) 0.04 x10^3/uL (0.01-0.08); Eosinophil % 0.4 % (0.7-5.8); Eosinophil (Absolute #) 0.04 x10^3/uL (0.04-0.36); Hematocrit 36.9 % (34.1-44.9); Hemoglobin 12.4 g/dL (11.2-15.7); IMMATURE GRAN # 0.02 x10^3u/L (0.001-0.031); IMMATURE GRAN % 0.2 % (0.001-0.429); Lymphocyte (Absolute #) 3.67 x10^3/uL (1.18-3.74); Lymphocytes % 35.9 % (19.3-51.7); Mean Cell Volume 94.6 fL (79.4-94.8); Mean Corpuscular Hemoglobin 31.8 pg (25.6-32.2); Mean Corpuscular Hgb Concent. 33.6 g/dL (32.2-35.5); Mean Platelet Volume 10.6 fL (9.4-12.3); Monocyte (Absolute #) 0.65 x10^3/uL (0.24-0.86); Monocytes % 6.4 % (4.7-12.5); Neutrophil % 56.7 % (34.0-71.1); Platelet Count 207 x10^3/uL (182-369); Red Cell Distribution Width 11.3 % (11.7-14.4); White Blood Count 10.2 x10^3/uL (3.98-10.04)
[2024-04-21 23:19] LABS: ALBUMIN 4.3 g/dL (3.5-5.0); ANION GAP 13.1 MEQ/L (5-15); BILIRUBIN,TOTAL 0.5 mg/dL (0.2-1.3); Calcium 9.7 mg/dL (8.4-10.2); Creatinine 1 0.69 mg/dL (0.52-1.04); EST GLOMERULAR FILTRATION RATE 116.7 ML/MIN; Potassium 3.9 mmol/L (3.5-5.1); Total Protein 7.6 g/dL (6.3-8.2)
[2024-04-21 23:31] LABS: INFLUENZA A NEGATIVE (NEGATIVE); INFLUENZA B NEGATIVE (NEGATIVE); RESPIRATORY SYNCTIAL VIRUS NEGATIVE (NEGATIVE); SARS-CoV-2 Xpert Express NEGATIVE (NEGATIVE)
[2024-04-22 00:11] LABS: CHLAMYDIA DNA NOT DETECTED (NEGATIVE); GC DNA Probe NOT DETECTED (NEGATIVE)
[2024-04-22 00:28] LABS: Appearance Clear (Clear); Bacteria None Seen /HPF (None Seen); Bilirubin Negative (Negative); Epithelial Cells Rare /HPF (None Seen); Glucose, Urine Negative (Negative); Hyaline Casts NONE SEEN /LPF (0-2); Ketones Trace (Negative); Leukocyte Esterase Negative (Negative); Nitrite Negative (Negative); Ph 5.5 (4.6-8.0); Protein,Urine Dip Negative (Negative); RBC 0-2 /HPF (0-5); Specific Gravity 1.025 (1.005-1.030); Urobilinogen 0.2 mg/dL (0.2); WBC 0-2 /HPF (0-5)
[2024-04-22 00:29] LABS: ADD URINE CULTURE? NO (NO); Blood Negative (Negative)
[2024-04-22 00:39] VITALS: BP 110/68; PULSE 72; RESP 16
[2024-04-22] MEDS ORDERED: Zofran 4 MG/2 ML VIAL ONE (00:47)
[2024-04-22] MEDS: Zofran 4 MG/2 ML VIAL IV ONE (00:49)
--- NOTE | 2024-04-22 00:54 | ERPHSYRPT ---
- History of Present Illness Time Seen by Provider: 04/21/24 22:20 Source: patient Exam Limitations: no limitations Patient Subjective Stated Complaint: pt states she thinks she may have a uti. states she has been nauseated and having difficulty urinating and frequency. Triage Nursing Assessment: pt alert and oriented, answers questions approp. pt ambulates into room with steady gait noted. respirations nonlabored. skin warm and dry. abd soft and nontender, bowel sounds present. urine clear and fermin. Physician History: Patient is a 33-year-old female presents emergency department for evaluation of increased urinary frequency. Patient also experiencing some nausea. Patient believes she has a urinary tract infection. Patient also advised that she observed a small vaginal blood clot. Patient requested to be checked for STI. Patient has no pelvic pain or cramping. No foul odors. No trauma no fever. Patient symptoms have been ongoing for the past couple days. She reports a slight headache. On exam a significant chemical odor was observed. Patient had just gotten out of work and had chemicals on her clothing from her workplace. Patient states that that is not new and unlikely contributing to her symptoms. Mother at bedside. They voiced no other complaints or concerns at this time. Portions of this note were created with voice recognition technology. There may be grammatical, spelling, punctuation or sound alike errors Timing/Duration: today Severity: moderate Modifying Factors: Improves With: nothing Associated Symptoms: nausea, headaches, No cough Allergies/Adverse Reactions: No Known Drug Allergies Allergy (Verified 04/21/24 22:21) Home Medications: Ethinyl Estradiol/Drospirenone [Vestura 3 mg-0.02 mg Tablet] 1 each PO DAILY 08/14/23 [History] Contrave DAILY 04/21/24 [History] Hx Tetanus, Diphtheria Vaccination/Date Given: Yes Hx Influenza Vaccination/Date Given: No Hx Pneumococcal Vaccination/Date Given: No Immunizations Up to Date: Yes Travel Risk - International Travel Have you traveled outside of the country in past 3 weeks: No - Emerging Infectious Disease Are you exhibiting symptoms associated with any current EIDs: No - Review of Systems Constitutional: No Symptoms, No Fever, No Chills Eyes: No Symptoms Ears, Nose, & Throat: No Symptoms Respiratory: No Symptoms, No Cough, No Dyspnea Cardiac: No Symptoms, No Chest Pain, No Edema, No Syncope Abdominal/Gastrointestinal: No Symptoms, No Abdominal Pain, No Nausea, No Vomiting, No Diarrhea Genitourinary Symptoms: No Symptoms, No Dysuria Musculoskeletal: No Symptoms, No Back Pain, No Neck Pain Skin: No Symptoms, No Rash Neurological: No Symptoms, No Dizziness, No Focal Weakness, No Sensory Changes Psychological: No Symptoms Endocrine: No Symptoms Hematologic/Lymphatic: No Symptoms Immunological/Allergic: No Symptoms All Other Systems: Reviewed and Negative - Past Medical History Pertinent Past Medical History: Yes Neurological History: No Pertinent History ENT History: No Pertinent History Cardiac History: No Pertinent History Respiratory History: No Pertinent History Endocrine Medical History: Hypothyroidism Musculoskeletal History: No Pertinent History GI Medical History: GERD, GI Bleed, Hepatitis, Pancreatitis History: No Pertinent History Psycho-Social History: Anxiety, Depression, Other Female Reproductive Disorders: Abnormal Uterine Bleeding, Endometriosis Other Medical History: HEP C- was treated,PTSD, SCHIZO, psychosis - Past Surgical History Past Surgical History: Yes Neuro Surgical History: No Pertinent History Cardiac: No Pertinent History Respiratory: No Pertinent History Gastrointestinal: Cholecystectomy Genitourinary: No Pertinent History Musculoskeletal: No Pertinent History, Orthopedic Surgery Female Surgical History: Other Other Surgical History: D&C, Liver bx, broken hip, bone graft with radiation - Female History Hx Last Menstrual Period: 3 weeks Hx Now: No - Social History Smoking Status: Smoker, status unknown How long have you smoked: 10yr Exposure to second hand smoke: No Drug Use: none Patient Lives Alone: No (unk) - Social Determinants of Health Will the patient participate in the screening: Declined to provide - Nursing Vital Signs Nursing Vital Signs: Initial Vital Signs Temperature 98.0 F 04/21/24 22:03 Pulse Rate 75 04/21/24 22:03 Respiratory Rate 16 04/21/24 22:03 Blood Pressure 135/74 04/21/24 22:03 O2 Sat by Pulse Oximetry 100 04/21/24 22:03 Pain Scale Pain Intensity 5 - Physical Exam General Appearance: no apparent distress, alert Eye Exam: PERRL/EOMI, eyes nml inspection, other (Slight proptosis observed) Ears, Nose, Throat Exam: normal ENT inspection, TMs normal, pharynx normal, moist mucous membranes Neck Exam: normal inspection, non-tender, supple, full range of motion Respiratory Exam: normal breath sounds, lungs clear, airway intact, No respiratory distress Cardiovascular Exam: regular rate/rhythm, normal heart sounds, normal peripheral pulses Gastrointestinal/Abdomen Exam: soft, normal bowel sounds, No tenderness, No mass Back Exam: normal inspection, normal range of motion, No CVA tenderness, No vertebral tenderness Extremity Exam: normal inspection, normal range of motion, pelvis stable Neurologic Exam: alert, oriented x 3, cooperative, normal mood/affect, sensation nml, No motor deficits Skin Exam: normal color, warm, dry, No rash Lymphatic Exam: No adenopathy SpO2 Interpretation: normal SpO2: 100 O2 Delivery: Room Air - Course Nursing assessment & vital signs reviewed: Yes Ordered Tests: Active Orders 24 hr Category Date Time Status CBC W DIFF Stat Lab 04/21/24 22:30 Completed CMP Stat Lab 04/21/24 22:30 Completed HCG QUALITATIVE, URINE Stat Lab 04/21/24 22:30 Completed TSH [TSH, 3RD Generation] Stat Lab 04/21/24 22:30 Completed UA W/RFX UR CULTURE Stat Lab 04/22/24 00:02 Completed Medication Summary Discontinued Medications Generic Name Dose Route Start Last Admin Trade Name Natalya PRN Reason Stop Dose Admin Sodium Chloride 1,000 mls @ 999 mls/hr 04/21/24 22:32 04/21/24 22:48 Sodium Chloride 0.9% 1000 Ml IV 04/21/24 23:32 999 mls/hr .Q1H1M STA Administration Sodium Chloride Confirm 04/21/24 22:44 Sodium Chloride 0.9% 1000 Ml Administered 04/21/24 22:45 Dose 1,000 mls @ ud .ROUTE .STK-MED ONE Ketorolac Tromethamine 30 mg 04/22/24 00:55 04/22/24 01:02 Ketorolac Tromethamine 30 Mg/Ml Inj IV 04/22/24 00:56 30 mg STAT ONE Administration Ketorolac Tromethamine Confirm 04/22/24 00:55 Ketorolac Tromethamine 30 Mg/Ml Inj Administered 04/22/24 00:56 Dose 30 mg .ROUTE .STK-MED ONE Ondansetron HCl 4 mg 04/22/24 00:46 04/22/24 00:49 Ondansetron Hcl 4 Mg/2 Ml Vial IV 04/22/24 00:47 4 mg STAT ONE Administration Ondansetron HCl Confirm 04/22/24 00:47 Ondansetron Hcl 4 Mg/2 Ml Vial Administered 04/22/24 00:48 Dose 4 mg .ROUTE .[facility] ONE Prochlorperazine Edisylate 10 mg 04/22/24 00:57 04/22/24 01:02 Prochlorperazine Edisylate 10 Mg/2 Ml Vial IV 04/22/24 00:58 10 mg STAT ONE Administration Prochlorperazine Edisylate Confirm 04/22/24 01:01 Prochlorperazine Edisylate 10 Mg/2 Ml Vial Administered 04/22/24 01:02 Dose 10 mg .ROUTE .[facility] ONE Lab/Rad Data: Laboratory Result Diagrams 04/21/24 22:30 04/21/24 22:30 Laboratory Results 04/22/24 04/21/24 04/21/24 Range/Units 00:02 22:45 22:30 WBC (3.98-10.04) x10^3/uL RBC (3.93-5.22) x10^6/uL Hgb (11.2-15.7) g/dL Hct (34.1-44.9) % MCV (79.4-94.8) fL MCH (25.6-32.2) pg MCHC (32.2-35.5) g/dL RDW (11.7-14.4) % Plt Count (182-369) x10^3/uL MPV (9.4-12.3) fL Gran % (34.0-71.1) % Immature Gran % (Auto) (0.001-0.429) % Nucleat RBC Rel Count (0.00-0.2) % Eos # (Auto) (0.04-0.36) x10^3/uL Immature Gran # (Auto) (0.001-0.031) x10^3u/L Absolute Lymphs (auto) (1.18-3.74) x10^3/uL Absolute Monos (auto) (0.24-0.86) x10^3/uL Absolute Nucleated RBC (0.00-0.012) x10^3u/L Lymphocytes % (19.3-51.7) % Monocytes % (4.7-12.5) % Eosinophils % (0.7-5.8) % Basophils % (0.1-1.2) % Absolute Granulocytes (1.56-6.13) x10^3/uL Basophils # (0.01-0.08) x10^3/uL Sodium 136 (135-145) mmol/L Potassium 3.9 (3.5-5.1) mmol/L Chloride 104 (98-107) mmol/L Carbon Dioxide 23 (22-30) mmol/L Anion Gap 13.1 (5-15) MEQ/L BUN 11 (7-17) mg/dL Creatinine 0.69 (0.52-1.04) mg/dL Estimated GFR 116.7 ML/MIN Glucose 89 (74-106) mg/dL Calcium 9.7 (8.4-10.2) mg/dL Total Bilirubin 0.50 (0.2-1.3) mg/dL AST 35 (14-36) U/L ALT 49 H (0-35) U/L Alkaline Phosphatase 47 (38-126) U/L Serum Total Protein 7.6 (6.3-8.2) g/dL Albumin 4.3 (3.5-5.0) g/dL TSH 3rd Generation (0.470-4.680) mIU/L Urine Color Yellow (Yellow) Urine Appearance Clear (Clear) Urine pH 5.5 (4.6-8.0) Ur Specific [place] 1.025 (1.005-1.030) Urine Protein Negative (Negative) Urine Glucose (UA) Negative (Negative) mg/dL Urine Ketones Trace A (Negative) Urine Blood Negative (Negative) Urine Nitrite Negative (Negative) Urine Bilirubin Negative (Negative) Urine Urobilinogen 0.2 (0.2) mg/dL Ur Leukocyte Esterase Negative (Negative) U Hyaline Cast (Auto) NONE SEEN (0-2) /LPF Urine Microscopic RBC 0-2 (0-5) /HPF Urine Microscopic WBC 0-2 (0-5) /HPF Ur Epithelial Cells Rare (None Seen) /HPF Urine Bacteria None Seen (None Seen) /HPF Urine Culture Reflexed NO (NO) Urine HCG, Qual (NEGATIVE) Chlamydia DNA Probe (NEGATIVE) Influenza Type A Ag NEGATIVE (NEGATIVE) Influenza Type B Ag NEGATIVE (NEGATIVE) N.gonorrhoeae DNA Probe (NEGATIVE) RSV (PCR) NEGATIVE (NEGATIVE) SARS-CoV-2 (PCR) NEGATIVE (NEGATIVE) 04/21/24 04/21/24 04/21/24 Range/Units 22:30 22:30 22:30 WBC 10.2 H (3.98-10.04) x10^3/uL RBC 3.90 L (3.93-5.22) x10^6/uL Hgb 12.4 (11.2-15.7) g/dL Hct 36.9 (34.1-44.9) % MCV 94.6 (79.4-94.8) fL MCH 31.8 (25.6-32.2) pg MCHC 33.6 (32.2-35.5) g/dL RDW 11.3 L (11.7-14.4) % Plt Count 207 (182-369) x10^3/uL MPV 10.6 (9.4-12.3) fL Gran % 56.7 (34.0-71.1) % Immature Gran % (Auto) 0.2 (0.001-0.429) % Nucleat RBC Rel Count 0.0 (0.00-0.2) % Eos # (Auto) 0.04 (0.04-0.36) x10^3/uL Immature Gran # (Auto) 0.02 (0.001-0.031) x10^3u/L Absolute Lymphs (auto) 3.67 (1.18-3.74) x10^3/uL Absolute Monos (auto) 0.65 (0.24-0.86) x10^3/uL Absolute Nucleated RBC 0.00 (0.00-0.012) x10^3u/L Lymphocytes % 35.9 (19.3-51.7) % Monocytes % 6.4 (4.7-12.5) % Eosinophils % 0.4 L (0.7-5.8) % Basophils % 0.4 (0.1-1.2) % Absolute Granulocytes 5.79 (1.56-6.13) x10^3/uL Basophils # 0.04 (0.01-0.08) x10^3/uL Sodium (135-145) mmol/L Potassium (3.5-5.1) mmol/L Chloride (98-107) mmol/L Carbon Dioxide (22-30) mmol/L Anion Gap (5-15) MEQ/L BUN (7-17) mg/dL Creatinine (0.52-1.04) mg/dL Estimated GFR ML/MIN Glucose (74-106) mg/dL Calcium (8.4-10.2) mg/dL Total Bilirubin (0.2-1.3) mg/dL AST (14-36) U/L ALT (0-35) U/L Alkaline Phosphatase (38-126) U/L Serum Total Protein (6.3-8.2) g/dL Albumin (3.5-5.0) g/dL TSH 3rd Generation 0.568 (0.470-4.680) mIU/L Urine Color (Yellow) Urine Appearance (Clear) Urine pH (4.6-8.0) Ur Specific [place] (1.005-1.030) Urine Protein (Negative) Urine Glucose (UA) (Negative) mg/dL Urine Ketones (Negative) Urine Blood (Negative) Urine Nitrite (Negative) Urine Bilirubin (Negative) Urine Urobilinogen (0.2) mg/dL Ur Leukocyte Esterase (Negative) U Hyaline Cast (Auto) (0-2) /LPF Urine Microscopic RBC (0-5) /HPF Urine Microscopic WBC (0-5) /HPF Ur Epithelial Cells (None Seen) /HPF Urine Bacteria (None Seen) /HPF Urine Culture Reflexed (NO) Urine HCG, Qual NEGATIVE (NEGATIVE) Chlamydia DNA Probe (NEGATIVE) Influenza Type A Ag (NEGATIVE) Influenza Type B Ag (NEGATIVE) N.gonorrhoeae DNA Probe (NEGATIVE) RSV (PCR) (NEGATIVE) SARS-CoV-2 (PCR) (NEGATIVE) 04/21/24 Range/Units 22:30 WBC (3.98-10.04) x10^3/uL RBC (3.93-5.22) x10^6/uL Hgb (11.2-15.7) g/dL Hct (34.1-44.9) % MCV (79.4-94.8) fL MCH (25.6-32.2) pg MCHC (32.2-35.5) g/dL RDW (11.7-14.4) % Plt Count (182-369) x10^3/uL MPV (9.4-12.3) fL Gran % (34.0-71.1) % Immature Gran % (Auto) (0.001-0.429) % Nucleat RBC Rel Count (0.00-0.2) % Eos # (Auto) (0.04-0.36) x10^3/uL Immature Gran # (Auto) (0.001-0.031) x10^3u/L Absolute Lymphs (auto) (1.18-3.74) x10^3/uL Absolute Monos (auto) (0.24-0.86) x10^3/uL Absolute Nucleated RBC (0.00-0.012) x10^3u/L Lymphocytes % (19.3-51.7) % Monocytes % (4.7-12.5) % Eosinophils % (0.7-5.8) % Basophils % (0.1-1.2) % Absolute Granulocytes (1.56-6.13) x10^3/uL Basophils # (0.01-0.08) x10^3/uL Sodium (135-145) mmol/L Potassium (3.5-5.1) mmol/L Chloride (98-107) mmol/L Carbon Dioxide (22-30) mmol/L Anion Gap (5-15) MEQ/L BUN (7-17) mg/dL Creatinine (0.52-1.04) mg/dL Estimated GFR ML/MIN Glucose (74-106) mg/dL Calcium (8.4-10.2) mg/dL Total Bilirubin (0.2-1.3) mg/dL AST (14-36) U/L ALT (0-35) U/L Alkaline Phosphatase (38-126) U/L Serum Total Protein (6.3-8.2) g/dL Albumin (3.5-5.0) g/dL TSH 3rd Generation (0.470-4.680) mIU/L Urine Color (Yellow) Urine Appearance (Clear) Urine pH (4.6-8.0) Ur Specific [place] (1.005-1.030) Urine Protein (Negative) Urine Glucose (UA) (Negative) mg/dL Urine Ketones (Negative) Urine Blood (Negative) Urine Nitrite (Negative) Urine Bilirubin (Negative) Urine Urobilinogen (0.2) mg/dL Ur Leukocyte Esterase (Negative) U Hyaline Cast (Auto) (0-2) /LPF Urine Microscopic RBC (0-5) /HPF Urine Microscopic WBC (0-5) /HPF Ur Epithelial Cells (None Seen) /HPF Urine Bacteria (None Seen) /HPF Urine Culture Reflexed (NO) Urine HCG, Qual (NEGATIVE) Chlamydia DNA Probe NOT DETECTED (NEGATIVE) Influenza Type A Ag (NEGATIVE) Influenza Type B Ag (NEGATIVE) N.gonorrhoeae DNA Probe NOT DETECTED (NEGATIVE) RSV (PCR) (NEGATIVE) SARS-CoV-2 (PCR) (NEGATIVE) - Progress Progress: improved Progress Note: IV fluids administered. Urinalysis negative for UTI. Patient reassessed. Patient states that she has a headache and nausea. Patient received Zofran and Compazine. We advised a CT of her head patient declined due to cost. Patient states she still was not feeling well but that she will follow-up with her [facility] doctor. Laboratory workup showed a slight leukocytosis otherwise nonremarkable. Patient had several unrelated nonspecific complaints. COVID test ordered. COVID testing negative. GC chlamydia negative as well. Some proptosis observed on exam. TSH ordered which was also within normal limits. Patient does not have a local physician. Patient referred to Dr. Sellers for follow-up. Portions of this note were created with voice recognition technology. There may be grammatical, spelling, punctuation or sound alike errors Complexity problem addressed is moderate acute complicated. No critical care time. Complex of data reviewed and analyzed is moderate. Test ordered test reviewed results analyzed and correlated clinically with history and physical exam. Risk of complication and or risk of morbidity/mortality of patient management is moderate. A prescription for Zofran forwarded to patient's pharmacy. Patient referred to Dr. Sellers for follow-up. Vital stable. Time spent to discharge patient approximately 20 minutes. Plan of care established for shared decision making. No social determinants of health present impede follow-up. Patient will follow-up with primary care doctor as discussed Portions of this note were created with voice recognition technology. There may be grammatical, spelling, punctuation or sound alike errors 04/22/24 01:01 Counseled pt/family regarding: lab results, diagnosis, need for follow-up - Departure Departure Disposition: Home Clinical Impression: Nausea, Increased urinary frequency, Headache Condition: Stable Critical Care Time: No Referrals: ARIANA GALLEGO NP [Primary Care Provider] - Follow up/PCP as directed VAN SELLERS DO [ACTIVE STAFF] - Follow up/PCP as directed Instructions: Headache, Adult ED Additional Instructions: Discharge/Care Plan RAIANA JOSE was seen on 04/22/24 in the Emergency Room. The patient was counseled regarding Diagnosis,Lab results, Imaging studies, need for follow up and when to return to the Emergency Room. Prescriptions given: Discharge Note I have spoken with the patient and/or caregivers. I have explained the patient's condition, diagnosis and treatment plan based on the information available to me at this time. I have answered the patient's and/or caregiver's questions and addressed any concerns. The patient and/or caregivers have as good understanding of the patient's diagnosis, condition and treatment plan as can be expected at this point. The vital signs have been stable. The patient's condition is stable and appropriate for discharge from the emergency department. The patient will pursue further outpatient evaluation with the primary care physician or other designated or consulting physician as outlined in the discharge instructions. The patient and/or caregivers are agreeable to this plan of care and follow-up instructions have been explained in detail. The patient and/or caregivers have received these instruction. The patient/and or caregivers are aware that any significant change in condition or worsening of symptoms should prompt an immediate return to this or the closest emergency department or call 911. Prescriptions: Ondansetron ODT 4 MG [Zofran Odt 4 mg] 4 mg PO Q6H PRN PRN #10 tablet PRN Reason: Vomiting
[2024-04-22] MEDS ORDERED: TORAdol 30 mg Injection ONE (00:55)
[2024-04-22] MEDS ORDERED: Compazine 10 MG/2 ML ONE (01:01)
[2024-04-22] MEDS: Compazine 10 MG/2 ML IV ONE (01:02)
[2024-04-22] MEDS: TORAdol 30 mg Injection IV ONE (01:02)
== END 2024-04-22 01:16 | disposition home or self-care (01) ==
LOC: ED 21:52
DX: R35.0 Frequency of micturition (principal); R11.0 Nausea; R51.9 Headache, unspecified
CPT/HCPCS: 0241U; 36415; 80053; 81001; 81025; 84443; 85025; 87491; 87591; 96360; 96374; 96375; 99284; J1885; J2405